=== PATIENT | male | born 2000 | race Two or more races ===

== ENCOUNTER → 2020-04-06 | Outpatient (CLI) | payer OTHER ==
--- NOTE | 2020-04-06 10:29 | US ---
EXAMINATION TYPE: US scrotum with doppler. Grayscale and color Doppler Duplex imaging performed of ronnie chen scrotum. DATE OF EXAM: 04/06/2020 COMPARISON: NONE CLINICAL HISTORY: R10.32 left lower quadrant pain, N50.812 left test. patient speaks some [place] but through his friend he states he had left sided pain that radiates to his left testicle, no swelling EXAM MEASUREMENTS: TESTICLES: Right Testicle: 4.2 x 3.5 x 2.5 cm Left Testicle: 3.8 x 2.9 x 2.3 cm EPIDIDYMIS HEAD: Right Epididymis: 1.2 cm Left Epididymis: 1.4 cm Doppler performed to assess for testicular vascularity; good bilateral color flow and waveforms are s een. Presence of hydroceles: mild bilaterally near epididymidis Presence of varicoceles: no Comparison views towards fundus study shows symmetric blood flow to both testicles. IMPRESSION: No suspicious increased or decreased blood flow to left testicle identified.
--- NOTE | 2020-04-06 11:13 | US ---
EXAMINATION TYPE: US abdomen complete DATE OF EXAM: 04/06/2020 COMPARISON: NONE CLINICAL HISTORY: R10.32 left lower quadrant pain, N50.812 left test. left sided pain after work inju ry, no palpable area, but left sided pain radiates to his left testicle EXAM MEASUREMENTS: Liver Length: 14.6 cm Gallbladder Wall: 0.2 cm CBD: 0.3 cm Spleen: 12.6 cm Right Kidney: 11.1 x 4.9 x 5.4 cm Left Kidney: 11.3 x 5.5 x 5.8 cm Pancreas: wnl Liver: wnl Gallbladder: wnl Evidence for sonographic Henry's sign: no CBD: wnl Spleen: wnl Right Kidney: wnl Left Kidney: wnl Upper IVC: wnl Abd Aorta: wnl The liver is homogenous. The intrahepatic portion of the IVC and visualized abdominal aorta are with in normal limits. There is no evidence of cholelithiasis. Common bile duct is unremarkable. The vi sualized portions of the pancreas are homogenous. The spleen is upper limits of normal in size. Kid neys are symmetric and free of hydronephrosis. No renal lesions are seen. IMPRESSION: No acute findings are evident.
== END | disposition home or self-care (01) ==
LOC: RADUSWWP 08:50
PROVIDERS: ATTEND Nurse Practitioner Family
DX: R10.32 Left lower quadrant pain (principal); N50.812 Left testicular pain; M54.5 Low back pain
CPT/HCPCS: 76700; 76870; 93975